=== PATIENT | female | born 1975 | race Caucasian/White ===

== ENCOUNTER → 2022-03-03 17:03 | Outpatient (CLI) | payer OTHER, SELFPAY ==
--- NOTE | ~2022-03-03 | MM_ITS ---
EXAMINATION: MM screening vipul BI w va HISTORY: Screening mammogram TECHNIQUE: Craniocaudal and mediolateral oblique 3-D tomosynthesis images were obtained and synthetic 2-D images were generated. CAD analysis was submitted and interpreted. COMPARISON: No prior mammogram is available for comparison at this institution. BREAST PARENCHYMAL COMPOSITION: There are scattered areas of fibroglandular density. FINDINGS: There is no evidence of suspicious mass, calcification, or architectural distortion to sugg est malignancy in either breast. There has been no suspicious interval change. IMPRESSION: 1. No mammographic evidence of malignancy. 2. Recommend routine screening mammography in one year. BI-RADS Category 1: Negative Reviewed, dictated and finalized at location A.
== END ==
PROVIDERS: PCP Internal Medicine; Visit Provider Internal Medicine
DX: Z12.31 Encounter for screening mammogram for malignant neoplasm of breast (principal)
CPT/HCPCS: 77063; 77067

== ENCOUNTER 2022-09-11 12:02 | Outpatient (CLI) | payer OTHER, SELFPAY ==
[2022-09-11 12:53] LABS: SARS-CoV-2 RNA PCR Negative (Negative)
[2022-09-11 15:13] LABS: RSV RNA, RT-PCR Positive (Negative)
[2022-09-11 15:21] LABS: Influenza A QL RT-PCR Negative (Negative); Influenza B QL RT-PCR Negative (Negative)
== END 2022-09-11 12:03 | disposition home or self-care (01) ==
PROVIDERS: PCP Internal Medicine; Visit Provider Internal Medicine
DX: R05.9 Cough, unspecified (principal); Z20.822 Contact with and (suspected) exposure to COVID-19
CPT/HCPCS: 87502; 87634; U0003; U0005

== ENCOUNTER → 2023-10-11 13:39 | Outpatient (CLI) | payer OTHER, SELFPAY ==
--- NOTE | ~2023-10-11 | MM_ITS ---
EXAMINATION: MM screening vipul BI w va HISTORY: Screening mammogram TECHNIQUE: Craniocaudal and mediolateral oblique 3-D tomosynthesis images were obtained and synthetic 2-D images were generated. CAD analysis was submitted and interpreted. COMPARISON: 03/03/2022 BREAST PARENCHYMAL COMPOSITION: There are scattered areas of fibroglandular density. FINDINGS: No suspicious mass, calcification, or architectural distortion are identified in either souleymane ast to suggest malignancy. There has been no suspicious interval change. IMPRESSION: 1. No mammographic evidence of malignancy. 2. Recommend routine screening mammography in one year. BI-RADS Category 1: Negative Reviewed, dictated and finalized at location A. GER BABY
== END ==
PROVIDERS: PCP Internal Medicine; Visit Provider Internal Medicine
DX: Z12.31 Encounter for screening mammogram for malignant neoplasm of breast (principal)
CPT/HCPCS: 77063; 77067

== ENCOUNTER → 2024-05-19 15:49 | Outpatient (REF) | payer OTHER, SELFPAY | LOC: ANHLAB 15:49 | PROVIDERS: PCP Internal Medicine; Visit Provider Plastic Surgery | DX: D23.61 Other benign neoplasm of skin of right upper limb, including shoulder (principal) | CPT/HCPCS: 88305 ==

== ENCOUNTER 2024-12-18 02:05 | Emergency (ER) | payer OTHER, SELFPAY ==
--- NOTE | ~2024-12-18 | XR_ITS ---
Clinical Indication: Shortness of breath PA and lateral views of the chest: Comparison: None Findings: Linear right basilar scarring or atelectasis present. The lungs are otherwise clear, withou t evidence of focal consolidation or pleural effusion. Cardiomediastinal silhouette is within normal limits. Bones and soft tissues are unremarkable. Impression: Linear right basilar scarring or atelectasis, otherwise clear lungs. Reviewed, dictated and finalized at location M. ER SAMPLE CASE Impression: Linear right basilar scarring or atelectasis, otherwise clear lungs.
--- OUTSIDE RECORDS SUMMARY | 2024-12-18 02:08 | XMS_ITS | Encounter Summary ---
Author Organization [facility] Address [address] [place] [address] Phone Care Team Providers Care Yarn Conditioner Name Role Phone Dioni Gibson MD Primary Care Provider Encounter Details Date Type Department Care Team (Latest Contact Info) Description 04/10/2019 Orders Only [facility] Scanning, Provider Social History Tobacco Use Types Packs/Day Years Used Date Smoking Tobacco: Never Smokeless Tobacco: Never Alcohol Use Standard Drinks/Week Comments No 0 (1 standard drink = 0.6 oz pur e alcohol) Comments Unknown Sex and Gender Information Value Date Recorded Sex Assigned at Not on file 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 Gender Identity Not on file Sexual Orientation Not on file documented as of this encounter Plan of Treatment Not on file documented as of this encounter Procedures Procedure Name Priority Date/Time Associated Diagnosis Comments PULMONARY - RESULT SCAN 04/10/2019 documented in this encounter Results * PULMONARY - RESULT SCAN (04/10/2019) Anatomical Region Laterality Modality Other us Provider Scanning Final Result documented in this encounter Visit Diagnoses Not on filedocumented in this encounter Care Teams Yarn Conditioner Relationship Specialty Start Date End Date Dioni Gibson MD PCP - General 03/21/17 documented as of this encounter
--- OUTSIDE RECORDS SUMMARY | 2024-12-18 02:08 | XMS_ITS | Encounter Summary ---
Author Organization [facility] Address [address] [place] [address] Phone Care Team Providers Care Business Applications Manager Name Role Phone Dioni Gibson MD Primary Care Provider Encounter Details Date Type Department Care Team (Latest Contact Info) Description 04/30/2019 Orders Only [facility] Scanning, Provider Social History Tobacco Use Types Packs/Day Years Used Date Smoking Tobacco: Never Smokeless Tobacco: Never Alcohol Use Standard Drinks/Week Comments No 0 (1 standard drink = 0.6 oz pur e alcohol) Comments Unknown Sex and Gender Information Value Date Recorded Sex Assigned at Not on file 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 Gender Identity Not on file Sexual Orientation Not on file documented as of this encounter Plan of Treatment Not on file documented as of this encounter Procedures Procedure Name Priority Date/Time Associated Diagnosis Comments SCAN - RADIOLOGY/IMAGING 04/30/2019 documented in this encounter Results * SCAN - RADIOLOGY/IMAGING (04/30/2019) Anatomical Region Laterality Modality Other us Provider Scanning Final Result documented in this encounter Visit Diagnoses Not on filedocumented in this encounter Care Teams Business Applications Manager Relationship Specialty Start Date End Date Dioni Gibson MD PCP - General 03/21/17 documented as of this encounter
--- OUTSIDE RECORDS SUMMARY | 2024-12-18 02:08 | XMS_ITS | Data Portability ---
Author Organization [place] [facility] [employer], Main Office Address [address] [place] [address] Assessment No assessment recorded. Plan of Treatment Reminders Order Date Submit Date Provider Last Modified By Organization Details Last Modified Time Details Appointments None recorded. Lab vitamin D, 25-hydroxy , total, serum 2022 023 [email or web address] [facility], [address] [place] [address], [address], 3 15:37:56 magnesium, serum or plasma 2022 023 [email or web address] [facility], [address] [place] [address], [address], 3 15:37:55 vitamin B12, serum 2022 023 [facility], [address] [place] [address], [address], 3 15:37:56 CBC w/ auto diff 2022 023 [email or web address] [facility], [address] [place] [address], [place], [address], 3 15:37:54 CMP, serum or plasma 2022 023 [email or web address] [facility], [address] [place] [address], [address], 3 15:37:55 lipid panel, serum 2022 023 [email or web address] [facility], [address] [place] [address], [address], 3 15:37:55 unlisted lab - T4, free 2022 023 [facility], [address] [place] [address], [place], [address], 3 15:37:55 TSH, ultra-sens itive, serum 2022 023 [email or web address] [facility], [address] [place] [address], [place], [address], 3 15:37:55 magnesium, serum or plasma 2023 024 [facility], [address] [place] [address], [place], [address], 4 12:56:27 CMP, serum or plasma 2023 024 [email or web address] [facility], [address] [place] [address], [place], [address], 4 12:56:26 CBC w/ auto diff 2023 024 [facility], [address] [place] [address], [place], [address], 4 12:56:26 lipid panel, serum 2023 024 [email or web address] [facility], [address] [place] [address], [place], [address], 4 12:56:26 TSH, ultra-sens itive, serum 2023 024 [facility], [address] [place] [address], [place], [address], 4 12:56:26 unlisted lab - T4, free 2023 024 [facility], [address] [place] [address], [place], [address], 4 12:56:27 vitamin B12 + folate, serum or blood 2023 024 [email or web address] [facility], [address] [facility], [place], [address], 4 12:56:27 iron + TIBC + ferritin, serum 2023 024 [facility], [address] [facility], [facility], [place], [address], 4 12:56:27 HbA1c (hemoglobi n A1c), blood 2023 024 [email or web address] [facility], [address] [facility], [facility], [place], [address], 12:56:27 HbA1c (hemoglobi n A1c), blood 2023 024 [email or web address] [facility], [address] [facility], [facility], [place], [address], 14:39:03 CMP, serum or plasma 2023 024 [facility], [address] [facility], [facility], [place], [address], 14:39:03 Referral None recorded. Procedures None recorded. Surgeries None recorded. Imaging None recorded. Medication Orders None recorded. Patient TargetsNo targets recorded. Patient Instructions Encounter Date Encounter Id Patient Instructions Last Modified By Organization Details Last Modified Time 02/07/2023 [id number] Follow-up hypertension-GERD -vitamin-D deficiency-morbid obesity clinically stable. Has had recent blood work performed which looked adequate otherwise. Will continue on current Rx recheck back in six months. [email or web address] Not available 02/07/2023 17:16:30 07/18/2023 [id number] Mass left chest wall -hypertension -GERD-rheumatoid arthritis -obesity class three. All clinically stable. Will need blood work consisting of CBC, CMP, lipid, thyroid, magnesium level, B12 and vitamin-D level. Does need a mammogram and will need a colonoscopy next year. Continue on current Rx will set up a surgical referral for removal of the lesion. Will obtain the mammogram in the interim. Portions of the record may have been created with voice recognition software. Occasional wrong-word or s ound-a-like substitutions may have occurred due to the inherent limitations of voice recognition software. Read the chart carefully and recognize, using context, where substitutions have occurred. Mammogram Next Appt: 6 Months Approximate Date: 01/14/2024 [email or web address] Not available 07/18/2023 10:42:35 01/23/2024 [id number] Follow-up hypertension, rheumatoid arthritis, GERD, obesity class three, this is leg syndrome. Plan to check blood work consisting of CBC, CMP, lipid, thyroid, hemoglobin A1c, iron levels, B12 and magnesium levels. Before change in medications for blood pressure increasing dose will see what the blood work shows 1st. May need to consider treatment of the of the anemia before addressing the blood pressure. Follow-up in four months pending the results of the testing. Next Appt: 4 Months Approximate Date: 05/22/2024 Portions of the record may have been created with voice recognition software. Occasional wrong-word or s ound-a-like substitutions may have occurred due to the inherent limitations of voice recognition software. Read the chart carefully and recognize, using context, where substitutions have occurred. Not available 01/23/2024 17:28:14 07/15/2024 [id number] risk assessment* [email or web address] Not availabl e 07/15/2024 17:21:11 INFLUENZA VACCIN E TD/TDAP Recommended today, patient declined Ordered Pa tient will get at local pharmacy/health department PNEUMONIA VACCINE Ordered Recommended today, patient declined Patient will get at local pharmacy/health department Recommen ded at age 64 SHINGLES Ordered Recommended today, patient declined Patient will get at local pharmacy/health department MAMMOGRAM: Last Mammogram No screening necessary patient is up to date DEXA SCAN CERVICAL SCREENING/PELVIC EXAMINATION Recommended today, but patient declined Ordered No screening necessary patient is up to date COLORECTAL SCREENING: Last Colonoscopy DEPRESSION SCREENING Negative BMI Overweight continue your current weight loss efforts try to lose 5% of your body weight try to lose 10% of your body weight NUTRITION PHYSICAL ACTIVITY Need more exercise/physical activity VISION ALCOHOL USE No alcohol use TOBACCO USE non smoker LUNG CANCER SCREENING Non Smoker-not indicated SEXUALLY ACTIVE HEPATITIS C SCREENING Not indicated GLUCOSE SCREENING LIPID SCREENING [email or web address] Not available 07/15/2024 17:02:02 Wellness evaluat ion risk assessment stable. Follow-up for essential hypertension, hyperlipidemia, type 2 diabetes, rheumatoid arthritis and obesity class three. Will check blood work specifically the hemoglobin A1c and CMP. Will hold off on lipid panel because the patient has been off her medication. Would strongly consider using a GLP one inhibitor the patient in order to help control her diabetes and fact that she is obesity class three would start on one the GLP one inhibitors help lose weight as well as control the diabetes. Will also restart back on atorvastatin to try to get it in cholesterol better control. Repeat the lipid panel in approximately six weeks Additional Orders - Directives - Recommendations 1. Needs a see a surgeon for internal hemorrhoids 2. Set up with Dermatology for recurrent urticarial rash 3. set up with director apparel for evaluation of urticaria 4. try to see the patient is a candidate for semaglutide or Mounjaro Next Appointment: 4 Months Approximate Date: 11/12/2024 Portions of the record may have been created with voice recognition software. Occasional wrong-word or s ound-a-like substitutions may have occurred due to the inherent limitations of voice recognition software. Read the chart carefully and recognize, using context, where substitutions have occurred. [email or web address] Not available 07/15/2024 17:20:47 Reason for Referral None Reported. Results Created Date Observation Date Name Description Value Unit Range Abnormal Flag Note LastModifiedBy Organization Detail LastModifiedTime 10/11/2010/11/2023 MAMMO , scree vani, digit al, bilat eral No observ ation record ed. [id number] [place] [address] Imaging [address], [place], [address], 10/11/2023 21:17:17 10/24/20 23 10/11/2023 MAMMO , scree vani, digit al, bilat eral No observ ation record ed. [id number] [place] [address] Imaging [address], [place], [address], 10/25/2023 06:49:21 01/30/20 24 01/30/2024 XR, chest , 2 view [facility] [address] [place] [address] Patien t Name: LAKISHA TINAJERO Access ion #: [id number] Sex: F : 1974 4 Dictat ed By: Henry Momin Attend ing Physic guzman: CHARLINE GIBSON CE Orderi ng Physic guzman: CHARLINE GIBSON CE Exam Date: 2023 17:01 PM Exam Name: XR CHEST 2V Admitt ing Diagno sis(es ): XR CHEST 2V CLINIC AL HISTOR Y: chest pain COMPAR KYLE: None TECHNI QUE: Fronta l and latera l view of the chest was obtain ed FINDIN GS: Lines and Tubes: None Lungs: No focal consol idatio n. Pleura : No effusi on. No pneumo thorax . Cardio medias tinal contou rs: Unrema rkable Bones: No acute osseou s abnorm ality. IMPRES MANDO: No acute cardio pulmon sneha diseas e. Electr onical ly Signed by: Henry Momin at 2023 17:17: 48 PM Page 1 [email or web address] [facility] (Imaging) [address] [place], [address], 01/31/2024 06:57:28 Result Notes None recorded. Problems Name Problem SNOMED Code Status Onset Date Resolution Date Notes Provider Name and Address Organization Details Recorded Time Asthma 751386621 Active 2018 Not Available [facility] 3 14:50:25 Gastroesophag eal reflux disease 052373862 Active 2016 Not Available [facility] 3 14:50:25 Headache 53608063 Active Not Available [facility] 3 14:50:25 Tear of medial meniscus of knee 289099853 Active 2018 Not Available [facility] 3 14:50:25 Family history of cancer of colon 771360397 Active 2017 Not Available [facility] 3 14:50:25 Vitamin D deficiency 85611034 Active 2021 Not Available [facility] 3 14:50:25 Dysphagia 91573437 Active Not Available [facility] 3 14:50:26 Cervical radiculopathy 90494117 Active Not Available [facility] 3 14:50:26 Respiratory syncytial virus infection 97017237 Active 2021 Not Available [facility] 3 14:50:26 Essential hypertension 81465558 Active Not Available [facility] 3 14:50:26 Rheumatoid arthritis 63797938 Active Not Available [facility] 3 14:50:26 Epigastric pain 05843695 Active Not Available [facility] 3 14:50:26 Serous otitis media 33286772 Active 2021 Not Available [facility] 3 14:50:26 COVID-19 748501258 Active 2021 Not Available [facility] 3 14:50:26 Morbid obesity 489045394 Active 2022 Dioni Gibson MD [address], [place], [address] , [facility] 3 17:14:02 Mass of chest wall 166050639 Active 2022 Dioni Gibson MD [address], [address], [place], [address] , [facility] 3 10:36:14 Obese class III 542406724 Active 2022 Dioni Gibson MD [address], [place], [address] , [facility] 3 10:37:49 Acute sinusitis 68944679 Active 2022 Dioni Gibson MD [address], [place], [address] , [facility] 3 12:11:59 Secondary restless legs syndrome 804377327 Active 2023 Dioni Gibson MD [address], [address], [place], [address] , [place] [facility] 4 17:23:01 Anemia 526893505 Active 2023 Dioni Gibson MD [address], [address] [facility], [place], [address] , [place] [facility] 4 17:26:48 Type 2 diabetes mellitus without complication 537193010 Active 2023 Dioni Gibson MD [address], [address], [place], [address] , [place] [facility] 4 17:04:14 Hypercholeste rolemia 80672016 Active 2023 Dioni Gibson MD [address], [place], [address] , [place] [facility] 4 17:04:51 Flank pain 940970664 Active 2023 Tameka Ware CMA null, [place] [facility] 4 17:29:04 Chest pain 81849602 Active 2023 Tameka Ware CMA null, [place] [facility] 4 17:29:25 Hemorrhoids 88695811 Active 2023 Dianne Worthington null, [place] [facility] 4 17:43:24 Cyst of skin 584054887 Active 2023 Celina Poole null, [place] [facility] 4 11:57:15 Diabetes mellitus 30360974 Active 2023 Tameka Ware CMA null, [place] [facility] 4 12:33:39 Urticaria 885727608 Active 2023 Celina Poole null, [place] [facility] 4 15:43:17 Internal hemorrhoids 20329605 Active 2023 Celina Poole null, [place] [facility] 15:45:27 Problem Notes None recorded. Procedures Surgical History None recorded. Imaging Results Imaging Date Name Status LastModified by Organiz ation Details LastModified Time 10/11/2023 MAMMO, screening, digital, bilateral completed [id number] [place] [address] [address], [place], [address], 10/11/2023 21:17:17 10/11/2023 MAMMO, screening, digital, bilateral completed [address] Imaging [address], [place], [address], 10/25/2023 06:49:21 01/30/2024 XR, chest, 2 view completed [address] (Imaging) [address] [place], [address], 01/31/2024 06:57:28 Procedure Notes None recorded. Medical Equipment None Reported. Allergies Allergen ID Allergen Name Allergen Category Reaction Reaction Severity Criticality Documentation Date Start Date Code Code System Note Provider Name and Address Organization Details Recorded Time 95566 Substance with sulfonami de structure and antibacte rial mechanism of action (substanc e) medicatio n rash Not available Not available 01/03/2023 49464 8003 SNOMED Not Available [facility] 3 14:53:57 92200 Product containin g penicilli n and antibioti c (product) medicatio n rash Not available Not available 01/03/2023 27169 05 SNOMED Not Available [facility] 3 14:53:57 35537 lisinopri l medicatio n cough Not available Not available 01/03/2023 97913 RxNorm Not Available [facility] 3 14:53:57 Medications Name Sig Start Date Stop Date Status Note LastModified by Organization Details LastModified Time losartan 50 mg tablet TAKE 1 TABLET BY MOUTH EVERY DAY 2024 active Not Available Not Available Not Avai lable metformin 500 mg tablet TAKE 1 TABLET BY MOUTH TWICE DAILY 07/15 completed Not Available Not Available Not Available doxycycline hyclate 100 mg capsule TAKE 1 CAPSULE BY MOUTH TWICE DAILY 01/22 completed Not Available Not Available Not Available atorvastati n 20 mg tablet TAKE 1 TABLET BY MOUTH EVERY DAY active Not Available Not Available No t Available clindamycin HCl 300 mg capsule Take 1 capsule every 6 hours by oral route. 07/18 completed Not Available Not Available Not Available azithromyci n 250 mg tablet TK 2 TS PO QD FOR 1 DAY THEN TK 1 T PO D 01/07 completed Not Available Not Available Not Available benzonatate 200 mg capsule TAKE 1 CAPSULE BY MOUTH THREE TIMES DAILY active Not Available Not Available No t Available sucralfate 1 gram tablet TK 1 T PO QID 01/07 completed Not Available Not Available Not Available lisinopril 20 mg tablet Take 1 tablet every day by oral route. 07/19 completed Not Available Not Available Not Available promethazin e 6.25 mg-codeine 10 mg/5 mL syrup Take 5 ML EVERY 6 HOURS by oral route PRN for cough active Not Available Not Available No t Available amlodipine 5 mg tablet Take 2 tablets every day by oral route. 07/15 completed Not Available Not Available Not Available leflunomide 20 mg tablet Take 1 tablet every day by oral route. active Not Available Not Available No t Available Mobic 15 mg tablet Take 1 tablet every day by oral route. 2012 active Not Available Not Available Not Avai lable hydrocortis one 2.5 % topical cream with perineal applicator APPLY THIN LAYER TOPICALLY TO THE AFFECTED AREA 2 TO 4 TIMES DAILY 07/15 completed Not Available Not Available Not Available Vitamin D3 10 mcg (400 unit) tablet Take 1 tablet every day by oral route. active Not Available Not Available No t Available OneTouch Ultra Test strips USE TO TEST BLOOD SUGAR ONCE DAILY active Not Available Not Available No t Available amlodipine 10 mg tablet TAKE 1 TABLET BY MOUTH DAILY 2024 active Not Available Not Available Not Avai lable pantoprazol e 40 mg tablet,traci yed release Take 1 tablet twice a day by oral route. active Not Available Not Available No t Available omeprazole 20 mg capsule,del ayed release TAKE 1 CAPSULE BY MOUTH EVERY MORNING active Not Available Not Available No t Available Levaquin 500 mg tablet Take 1 tablet every 24 hours by oral route. 07/19 completed Not Available Not Available Not Available lisinopril 10 mg-hydrochl orothiazide 12.5 mg tablet TAKE 1 TABLET BY MOUTH ONCE DAILY 07/19 completed Not Available Not Available Not Available methylpredn isolone 4 mg tablets in a dose pack Take by oral route as per package insert 01/21 completed Not Available Not Available Not Available albuterol sulfate HFA 90 mcg/actuati on aerosol inhaler INHALE 2 PUFFS 6 TIMES A DAY BY INHALATIO N ROUTE. active Not Available Not Available No t Available cefdinir 300 mg capsule Take 1 capsule every 12 hours by oral route. 01/21 completed Not Available Not Available Not Available neomycin-po lymyxin-hyd rocort 3.5 mg-10,000 unit/mL-1 % ear drops,susp SHAKE LIQUID AND INSTILL 4 DROPS TO AFFECTED EAR THREE TIMES DAILY 07/18 completed Not Available Not Available Not Available cyclobenzap rine 5 mg tablet Take 1 tablet 3 times a day by oral route. 2012 active Not Available Not Available Not Avai lable Prilosec OTC 20 mg tablet,traci yed release Take 1 tablet every day by oral route in the morning. 01/23 completed Not Available Not Available Not Available folic acid 07/22 completed Not Available Not Available Not Available omeprazole 20 mg tablet,traci yed release TAKE 1 TABLET BY MOUTH EVERY MORNING 07/18 completed Not Available Not Available Not Available OneTouch Ultra2 Meter USE DIRECTED active Not Available Not Available No t Available OneTouch Delica Plus Lancet 33 gauge USE TO TEST BLOOD SUGAR ONCE DAILY active Not Available Not Available No t Available OneTouch Delica Plus Lancing Device kit USE TO TEST BLOOD SUGAR ONCE DAILY active Not Available Not Available No t Available Paxlovid 300 mg (150 mg x 2)-100 mg tablets in a dose pack TAKE TWO OF HE 150 MG TABLETS AND ONE OF THE 100 MG TABLETS TWICE DAILY FOR FIVE DAYS 07/18 completed Not Available Not Available Not Available Ozempic 0.25 mg or 0.5 mg (2 mg/3 mL) subcutaneou s pen injector inject 0.5 mg once week same day each week active Not Available Not Available No t Available Zepbound 2.5 mg/0.5 mL subcutaneou s pen injector INJECT 2.5 MG BY SUBCUTANE OUS ROUTE ONCE WEEKLY FOR 4 WEEKS then will need to call office 11/14 completed Not Available Not Available Not Available Vitals Date Recorded Body mass index (BMI) Body height Oxygen saturation Oxygen saturation in Arterial blood by Pulse oximetry Heart rate Respiratory rate Body temperature Body weight Systolic blood pressure Diastolic blood pressure Provider Name and Address Organization Details Last Updated DateTime 3 40.4 kg/m2 167.64 cm 98 % 98 % 90 /min 12 /min 96.8 [degF] 571801. 09 g 156 mm[Hg] 96 mm[Hg] Not Available [facility] 3 14:49:01 Date Recorded Body height Body mass index (BMI) Body weight Body temperature Heart rate Oxygen saturation Oxygen saturation in Arterial blood by Pulse oximetry Systolic blood pressure Diastolic blood pressure Provider Name and Address Organization Details Last Updated DateTime 3 167.64 cm 40.4 kg/m2 777150. 09 g 97 [degF] 97 /min 96 % 96 % 140 mm[Hg] 88 mm[Hg] Jennifer Johnson MA [facility] 3 17:06:44 Date Recorded Body height Body mass index (BMI) Body weight Heart rate Body temperature Oxygen saturation Oxygen saturation in Arterial blood by Pulse oximetry Systolic blood pressure Diastolic blood pressure Provider Name and Address Organization Details Last Updated DateTime 3 165.1 cm 40.8 kg/m2 067000. 13 g 103 /min 97 [degF] 97 % 97 % 132 mm[Hg] 84 mm[Hg] Dianne Worthington [facility] 3 10:31:55 Date Recorded Body height Body mass index (BMI) Body weight Heart rate Body temperature Oxygen saturation Oxygen saturation in Arterial blood by Pulse oximetry Systolic blood pressure Diastolic blood pressure Provider Name and Address Organization Details Last Updated DateTime 4 165.1 cm 42.5 kg/m2 604768. 85 g 113 /min 97 [degF] 96 % 96 % 168 mm[Hg] 100 mm[Hg] Dianne Worthington [facility] 4 17:11:56 Date Recorded Body height Body weight Heart rate Body temperature Oxygen saturation Oxygen saturation in Arterial blood by Pulse oximetry Systolic blood pressure Diastolic blood pressure Provider Name and Address Organization Details Last Updated DateTime 4 165.1 cm 504977. 09 g 107 /min 97.7 [degF] 94 % 94 % 126 mm[Hg] 92 mm[Hg] SILVIA Doan [place] [facility] 4 16:56:13 Social History Question Answer Notes LastModified by Organizat ion Details LastModified Time Do You Have An Advance Directive? No [id number] Information not available 01/03/2023 In The 14 Days Before Symptom Onset, Have You Had Close Contact With A Laboratory-confirme d COVID-19 While That Case Was Ill? No [id number] Information not available 01/03/2023 In The 14 Days Before Symptom Onset, Have You Had Close Contact With A Person Who Is Under Investigation For COVID-19 While That Person Was Ill? No [id number] Information not available 01/03/2023 Do You Have A Medical Power Of Clinical Nursing Director? No [id number] Information not available 01/03/2023 Have You Recently Traveled Abroad? No [id number] Information not available 01/03/2023 Sex: Unknown Functional Status None recorded. Mental Status None recorded. Family History Nothing Reported Notes:Mother 50 yea rs old Father Living 83 years old 1 Brothers 1 Living 1 Sisters overdose Mother Hx Ca of Colon Father COPD Medical History Condition Response NERVE DISEASE N BLINDNESS N RHEUMATIC FEVER N KIDNEY STONES N BLADDER PROBLEMS N MRSA N OTHER # 1 N POLIO N LUNG DISEASE/DISORDER N HISTORY OF DRUG ABUSE N COPD N RADIATION / CHEMOTHERAPY N Other # 2 N BLOOD DISEASES N EAR OR HEARING PROBLEMS N MUMPS N SHINGLES N DEPRESSION (INCLUDING POST ) N BOWEL PROBLEMS N STROKE/TIA N ULCERS N BENIGN PROSTATIC HYPERPLASIA N MEASLES N HYPOTENSION N MYOCARDIAL INFARCTION N OBESITY N GERD/NAUSEA N ANEURYSM N URINARY/BLADDER/KIDNEY PROBLEMS N CORONARY ARTERY DISEASE (CAD) N ADDICTION CONCERNS N Impotence N ENDOMETRIOSIS N USE OF BLOOD THINNERS N SKIN PROBLEMS N GASTROINTESTINAL DISORDER N PERIPHERAL VASCULAR DISEASE N MUSCLE,JOINT OR BONE PROBLEMS N GASTROINTESTINAL BLEEDING N BLOOD CLOTS N ASTHMA N CATARACTS N ERECTILE DYSFUNCTION N VARICOSITIES N GI PROBLEMS N Low Testosterone N INFERTILITY N AIDS/HIV N CHEMOTHERAPY / RADIATION N LIVER DISEASE N MALE HYPOGONADISM N HYPERTENSION N Deficiency N TOURETTE'S N ANXIETY DISORDER N BLOOD TRANSFUSION N ANEMIA/BLOOD DISORDER N CHRONIC EAR INFECTIONS N BRONCHITIS N TUBERCULOSIS N GLAUCOMA N FOOT PROBLEM N DIVERTICULITIS N SLEEP APNEA N CHICKENPOX N INFECTIOUS DISEASE N PROSTATE N HEART ARRHYTHMIA N INSOMNIA N HIGH CHOLESTEROL / HYPERLIPIDEMIA N EYE PROBLEMS N HYPERTHYROIDISM N EDEMA N CHRONIC PAIN SYNDROME N HYPOTHYROIDISM N CAROTID BLOCKAGE N CONSTIPATION N BACK / NECK PROBLEMS Y HAVE YOU BEEN HOSPITALIZED OR SEEN IN [facility] IN THE PAST YEAR ? N ATHEROSCLEROSIS N BREAST PROBLEMS N DIALYSIS N ECZEMA N OSTEOPOROSIS N ARTHRITIS Y NO SIGNIFICANT PAST MEDICAL HISTORY N APPENDICITIS N DIABETES, TYPE N BAD TEETH N ENT N HEARTBURN / REFLUX Y AUTISM SPECTRUM DISORDER (ASD) N HEPATITIS / LIVER DISEASE N GOUT N SLEEP DISORDER N ALZHEIMER'S DISEASE N Brain Problems N DEMENTIA N HERPES N SEIZURES/EPILEPSY N HEADACHES/MIGRAINES N VASCULAR DISEASE N PACEMAKER N Blood Disorder N DIZZINESS N HEART DISEASE/HEART PROBLEMS N KIDNEY DISEASE N MULTIPLE SCLEROSIS N CANCER: SPECIFY N CARDIAC ARRHYTHMIA N ATRIAL FIBRILLATION N Gall Stones N PULMONARY EMBOLISM N AUTOIMMUNE DISEASE N Gynecological HistoryNo gynecological history recorded. Obstetrics History GPAL:G 0 P 0 0 0 0 Immunizations Vaccine Type Date Status Note Provider Nam e and Address Organization Details Recorded Time SARS-COV-2 (COVID-19) vaccine, UNSPECIFIED 1 completed Not Available [facility] 01/03/2023 14:53:52 SARS-COV-2 (COVID-19) vaccine, UNSPECIFIED 1 completed Not Available [facility] 01/03/2023 14:53:52 Past Encounters Encounter ID Performer Location Encounter Start Date Encounter Closed Date Diagnosis/Indication Diagnosis SNOMED-CT Code Diagnosis ICD10 Code Diagnosis Note [id number] [facility] [place] [facility] [address] [facility] [address] [facility] [place] [address] 01/07/2021 00:00:00 01/07/2021 11:52:13 [id number] [facility] Internal Med [facility] [address] [address] 07/13/2021 00:00:00 07/13/2021 17:34:45 [id number] [facility] Internal Med [facility] [address] [address] 01/23/2022 00:00:00 01/23/2022 16:51:36 [id number] [facility] Internal Med [facility] [address] [address] 08/09/2022 00:00:00 08/09/2022 17:12:40 [id number] Dioni Gibson MD [facility] Internal Med [facility] [address] [address] 02/07/2023 16:55:08 02/07/2023 17:24:12 Essential hypertension 53622544 I10 Gastroesop hageal reflux disease 138788459 K21.9 Vitamin D deficiency 347 43657 E55.9 Morbid obesity 623889871 E66.01 [id number] Dioni Gibson MD [facility] Internal Med [facility] [address] [address] 07/18/2023 10:29:52 07/18/2023 10:59:05 Mass of chest wall 735281951 R22.2 Essential hypertension 82101892 I10 Gastroesop hageal reflux disease 002865567 K21.9 Rheumatoid arthritis 698 68420 M06.9 Obese class III 16894878 5 E66.01 Vitamin D deficiency 347 48178 E55.9 [id number] Dioni Gibson MD [facility] Internal Med [facility] [address] [address] 01/23/2024 17:05:09 01/23/2024 17:32:26 Essential hypertension 71802430 I10 Rheumatoid arthritis 698 48349 M06.9 Obese class III 66878464 5 E66.01 Gastroesop hageal reflux disease 142744597 K21.9 Secondary restless legs syndrome 200283950 G25.81 Anemia 310190751 D64.9 [id number] Dioni Gibson MD [facility] Internal Med [place] mathis [address] [facility] [place] [address] 07/15/2024 16:51:30 07/15/2024 17:34:26 Adult health examination 584534146 Z00.00 Depression screening 171 389459 Z13.31 Essential hypertension 40638292 I10 Hypercholesterolemia 136 57288 E78.00 Rheumatoid arthritis 698 46135 M06.9 Type 2 simona betes mellitus without complication 906755935 E11.9 Obese class III 32496188 5 E66.01 Health Concerns Section Related Observation LastModified by Organization Detai ls LastModified Time None Recorded Concern Status LastModified by Organization Details LastModified Time None Recorded Advance Directives Directive N: Payers Encounter Date Sequence Insurance Name Policy Number Policy Blancas Covered Member ID Blancas Member ID Guarantor Name 02/07/2023 1 [facility] [id number] Angel E Nevills [id number] Lakisha A Nevills 07/18/2023 1 [facility] [id number] Angel E Nevills [id number] Lakisha A Nevills 01/23/2024 1 [facility] [id number] Angel E Nevills [id number] Lakisha A Nevills 07/15/2024 1 [facility] [id number] Angel E Nevills [id number] Lakisha A Nevills Notes Date Note Type Note Provider Name and Address Organization Details Recorded Time 3 text/html Patient Name: Lakisha CervantesDate Of Service: Sunday ( 02.07.2023 ): 1975 Age: 47 Vital Signs:Blood Pressure: Sitting Rt. Arm 140/88Pulse: Sitting 97 /min and RegularRespirations: 12Height 66 in or 1.7 mWeight 250 lb or 113.4 kgBMI 40.3Temperature: 97 F or 36.1 CPulse Oximetry: 96 % at rest on no oxygen Chief Complaint: Addressed in HPI Problems or conditions discussed in the HPI were the only ones reviewed during the encounter.Only social and family history addressed in the HPI were reviewed during this encounter. Attendant(s): None Constitutional and Systemic Symptoms: none Medication Reconciliation: from medication list. History of Present Illness #1. Essential Hypertension: Stage: Stage I Interval Neurological Complaints no headaches, dizziness, weakness, visual changes, ataxia, aphasia and apraxia. No shortness of breath, orthopnea or cardiovascular symptoms. No other symptoms related to end organ damage. Pressure has been under excellent control. Currently normal. No other end organ symptoms or findings. Therapy reviewed regarding management of hypertension and includes salt restriction and Norvasc. #2. Hx of esophageal reflux currently stable. Hx of Complications: none The severity, duration and intensity of symptoms have improved. Frequency: most meals Treatment consists medications taken on a regular basis. Current therapy includes Omeprazole. There has been no nausea. No change in he frequency or intensity of symptoms. Has had no melena. Has had no hematemesis. Discuss the possibility of trying to reduce the frequency of the use of any PPI inhibitors or H2 antagonist to see if symptoms can be controlled with last intensive therapy #3. Hx of Vitamin D deficiency. Has been on vitamin D Supplements. Has had has had a repeat value within acceptable range No other signs or symptoms of any osteoporotic or osteopenia fractures. #4. Hx of obesity. Currently morbidly obese. Has tried numerous dietary support and supplements with no benefit. Instructed on the health consequences of the obese status particularly cancer diabetes and heart disease. Discussed new modalities of weight loss including GLP-1 medications that are used to treat diabetes. Potential candidate for bariatric surgery: Yes but does no wish to pursue. Wishes to be evaluated by Dietary: Currently on weight watchers and has begun to lose some weight..Medication List Reviewed and Reconciled 02/07/2023Norvasc 5 MG (TABLET - ORAL) One DailyLeflunomide 20 MG (TABLET - ORAL) One DailyOmeprazole 20 MG CAPSULE, DELAYED RELEASE One DailyADRs List Reviewed 02/07/2023enicillin RashSulfa Drugs RashLisinopril CoughVaccination and Valwgkeoztfr3702-30 Covid PfizerSurgical HistoryRt. Ear TubesPreventative Testing Confirmed by Our Tuytpuj7903/03/2022 MAMMOGRAM / ALBUMIN 3.7 G/DL L04/30/2019 CT ZGFMAW3204/16/2019 UPPER UACZEAMNZ88/12/2019 COLONOSCOPY (5 YEARS) / LETTER OPHTHALMOLOGYSocial HistoryMarital Status: MLiving Status: With SpouseDoes not smoke cigarettes. 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 This represents approximately a 2.0% change in weight. Weight change attributable to lifestyle changes. Vital Signs:Blood Pressure: Sitting Rt. Arm 132/84Pulse: Sitting 103 /min and RegularHeight 65 in or 1.7 mWeight 245 lb or 111.1 kgBMI 40.8Temperature: 97 F or 36.1 CPulse Oximetry: 97 % at rest on no oxygen Chief Complaint: Addressed in HPI Problems or conditions discussed in the HPI were the only ones reviewed during the encounter.Only social and family history addressed in the HPI were reviewed during this encounter. Attendant(s): NoneConstitutional and Systemic Symptoms: none Medication Reconciliation: from medication list. History of Present Illness #1. Complaining of a lump or a mass in the subcutaneous area just above the left breast. Slightly tender but no other associated symptoms. Measures approximately 3 cm x 2 and 0.5 cm in diameter. No other associated lymphadenopathy is noted. There is no drainage from the breast or any other masses noted in the breast is overdue for mammogram and will need this. As mentioned is slightly tender.: #2. Essential Hypertension: Stage: Stage I Interval Neurological Complaints no headaches, dizziness, weakness, visual changes, ataxia, aphasia and apraxia. No shortness of breath, orthopnea or cardiovascular symptoms. No other symptoms related to end organ damage. Pressure has been under excellent control. Currently normal. No other end organ symptoms or findings. Therapy reviewed regarding management of hypertension and includes salt restriction and Norvasc. #3. Hx of esophageal reflux currently stable. Hx of Complications: none The severity, duration and intensity of symptoms have improved. Frequency: most meals Treatment consists medications taken on intermittent basis. Current therapy includes Omeprazole. There has been no nausea, eructation, vomiting, hematemesis, dysphagia, velopharyngeal insufficiency and odynophagia. No change in he frequency or intensity of symptoms. Has had no melena. Has had no hematemesis. Discuss the possibility of trying to reduce the frequency of the use of any PPI inhibitors or H2 antagonist to see if symptoms can be controlled with last intensive therapy #4. Hx of rheumatoid arthritis. Currently stable. No additional joint swelling or deformities noted. Synovial thickening as noted below. Physical activity status unchanged. Followed by Counselor Education Professor: Yes. Tolerating medications well. Medications currently consistent of NSAIDS. #5. Hx of obesity. Currently Class 3 Obesity [place] > 40. Has tried numerous dietary support and supplements with no benefit. Instructed on the health consequences of the obese status particularly cancer - diabetes and heart disease. Discussed new modalities of weight loss including GLP-1 medications that are used to treat diabetes. Potential candidate for bariatric surgery: Yes but does no wish to pursue. Wishes to be evaluated by Dietary: No and was offered to be evaluated and instructed by lead warehouse associate on weight loss diet.Medication List Reviewed and Reconciled 07/18/2023Norvasc 5 MG (TABLET - ORAL) One DailyLeflunomide 20 MG (TABLET - ORAL) One DailyOmeprazole 20 MG CAPSULE, DELAYED RELEASE One DailyADRs List Reviewed 07/18/2023enicillin RashSulfa Drugs RashLisinopril CoughVaccination and Ljfqobjmbbbm5224-92 CovQuuSurgical HistoryRt. Ear TubesPreventative Testing Confirmed by Our Ggsisck1203/03/2022 MAMMOGRAM / ALBUMIN 3.7 G/DL L04/30/[address] CT OGABOH6504/16/2019 UPPER SHHAIIZME07/12/2019 COLONOSCOPY (5 YEARS) / LETTER OPHTHALMOLOGYSocial HistoryMarital Status: MLiving Status: With SpouseDoes not smoke cigarettes. Exercise: InfrequentlySexual Hx: Sexually ActiveOccupation: Insurance AgentMiscellaneous:Uses no illicit drugsUses seat belts regularlyFamily HistoryMother 50 years oldFather Living 84 years old1 Brothers 1 Living1 Sisters overdoseMother Hx: Ca of ColonFather COPD Dioni Gibson MD [address] [facility], [facility] [address], [place], [address], [place] [facility] [employer] 07/18/2023 10:42:59 4 text/html Patient Name: Lakisha CervantesLili Of Service: Sunday ( 01.23.2024 ): 1975 Age: 48 There has been approximately a 10.5 lb weight gain since 07/18/2023. This represents approximately a 4.3% change in weight. Weight change attributable to lifestyle changes. Vital Signs:Blood Pressure: Sitting Rt. Arm 168/100Pulse: Sitting 113 /min and RegularRespiratory Rate: 12Height 65 in or 1.7 mWeight 255.5 lb or 115.9 kgBMI 42.5 Chief Complaint: Addressed in HPI Problems or conditions discussed in the HPI were the only ones reviewed during the encounter.Only social and family history addressed in the HPI were reviewed during this encounter. Attendant(s): NoneConstitutional and Systemic Symptoms:none Medication Reconciliation: from medication list. History of Present Illness #1. Essential Hypertension: Stage: Stage I Interval Neurological Complaints no headaches, dizziness, weakness and visual changes. No shortness of breath, orthopnea or cardiovascular symptoms. No other symptoms related to end organ damage. Pressure has been under poor control. Currently elevated and instructed to recheck in office in two weeks. No other end organ symptoms or findings. Therapy reviewed regarding management of hypertension and includes salt restriction and Norvasc. #2. Hx of rheumatoid arthritis. Currently stable. No additional joint swelling or deformities noted. Synovial thickening as noted below. Physical activity status unchanged. Followed by Counselor Education Professor: Yes. Tolerating medications well. Medications currently consistent of Leflunomide. #3. Hx of esophageal reflux currently stable. Hx of Complications: none The severity, duration and intensity of symptoms have improved. Frequency: most meals Treatment consists medications taken on a regular basis. Current therapy includes Omeprazole. There has been no nausea. No change in he frequency or intensity of symptoms. Has had no melena. Has had no . Discussed use of H2 antagonists and the possibility of trying to reduce the frequency of the use of any PPI inhibitors and try H2 antagonists to see if symptoms can be controlled with lease intensive therapy since a number of complications are associated with chronic prolonged use of PPI inhibitors. #4. Restless Leg Syndrome: Hx of the restless leg syndrome. Currently taking no medications. Symptoms are worse. #5. Hx of obesity. Currently Class 3 Obesity [place] > 40. Has tried numerous dietary support and supplements with no benefit. Instructed on the health consequences of the obese status particularly cancer - diabetes and heart disease. Discussed new modalities of weight loss including GLP-1 medications that are used to treat diabetes. Potential candidate for bariatric surgery: Yes but does no wish to pursue. Wishes to be evaluated by Dietary: No and was offered to be evaluated and instructed by lead warehouse associate on weight loss diet. Active Medication ListNorvasc 5 MG (TABLET - ORAL) One DailyLeflunomide 20 MG (TABLET - ORAL) One DailyOmeprazole 20 MG CAPSULE, DELAYED RELEASE One DailyVitamin D Daily Adverse Drug Reactions ReviewedPenicillin RashSulfa Drugs RashLisinopril Cough Vaccination and Ipumsuykeitw4442-37 Covid Learnerator Surgical Ubeltjn4857-30 Rt. Ear Tubes Preventative Bxqkvsz9210/11/2023 MAMMOGRAM / ALBUMIN 3.8 G/DL L04/30/2019 CT [id number]/16/2019 UPPER EKJJTAXQD93/12/2019 COLONOSCOPY (5 YEARS) / OPHTHALMOLOGY Social HistoryMarital Status: MLiving Status: With SpouseDoes not smoke cigarettes. 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 This represents approximately a 2.2% change in weight. Weight change attributable to lifestyle changes. Vital Signs:Blood Pressure: Sitting Rt. Arm 126/92Pulse: Sitting 107 /min and RegularRespiratory Rate: 14Height 65 in or 1.7 mWeight 250 lb or 113.4 kgBMI 41.6 Chief Complaint: Addressed in HPI Problems or conditions discussed in the HPI were the only ones reviewed during the encounter.Only social and family history addressed in the HPI were reviewed during this encounter. Attendant(s): NoneConstitutional and Systemic Symptoms:none Medication Reconciliation: from medication list. History of Present Illness In for a well patient check up. Last well patient evaluation was approximately one year. No interval complaints of any major medical problems. No hx of any chest pain, shortness of breath, nausea, vomiting, diarrhea or constitutional symptoms. Also being followed for other chronically monitored problems.Has Had A Mammogram already doneHas Had A Pap Smear dueImmunizations Up To Date or refuses to takeNo Significant Change In Family HxColonoscopy or Cologuard: dueFall Risk normalDepression Score: 0PHQ-9 Score [IndicatedHearing normalVision normalReviewed Smoking and Drug HistoryReviewed Immunization HistoryInstructed on importance of weight on diabetes, heart and other diseases aggravated by obesity. #1. Essential Hypertension: Stage: Stage I Interval Neurological Complaints no headaches, dizziness, weakness, visual changes, ataxia, aphasia and apraxia. No shortness of breath, orthopnea or cardiovascular symptoms. No other symptoms related to end organ damage. Pressure has been under excellent control. Currently normal. No other end organ symptoms or findings. Therapy reviewed regarding management of hypertension and includes salt restriction and Losartan Potassium and Norvasc. #2. Type II Hypercholesterolaemia: Currently stopped medication independently. No interval complaints of any muscle pain or arthralgia. No significant liver changes with medications. Last lipid panel: suboptimal by ATP III guidelines. Therapy reviewed regarding treatment of cholesterol management and include diet. #3. Type I Diabetes: Has had no polyuria polyphagia or polydipsia. Has had no hypoglycemic like responses. No new history of any numbness, tingling, weakness or visual problems. No nausea, anorexia or other constitutional symptoms. There has been no foot problems or non healing lesions. [facility] Calculated MB mg%. CGM: No. Average blood sugars > 150 mg%. Checking sugars : infrequently Medication Types Include: Stopped her metformin independently because of GI symptomatology. Secondary complications include none. Macro-vascular complications include none. Therapy reviewed regarding diabetic management and include diet only Compliance: non-compliant Renal Protection: starting on a calcium john Lipid management: refuses to use Urinary microalbumin: A1 . Ophthalmological: has seen eye doctor within the last year. Control: Inadequate control > 8 #4. Hx of rheumatoid arthritis. Currently stable. No additional joint swelling or deformities noted. Synovial thickening as noted below. Physical activity status unchanged. Followed by Counselor Education Professor: Yes. Tolerating medications well. Medications currently consistent of Leflunomide. #5. Hx of obesity. Currently Class 3 Obesity MN > 40. Has tried numerous dietary support and supplements with no benefit. Instructed on the health consequences of the obese status particularly cancer - diabetes and heart disease. Discussed other modalities of weight loss GLP-1 medications that are used to treat diabetes . Potential candidate for bariatric surgery: Yes but does no wish to pursue. Wishes to be evaluated by Dietary: No and was offered to be evaluated and instructed by lead warehouse associate on weight loss diet. Active Medication ListLosartan Potassium 50 MG TABLET Once DailyNorvasc 10 MG TABLET One DailyLeflunomide 20 MG (TABLET - ORAL) One DailyOmeprazole 20 MG CAPSULE, DELAYED RELEASE One DailyVitamin D Daily Adverse Drug Reactions ReviewedPenicillin RashSulfa Drugs RashLisinopril Cough Vaccination and Yufjtkioxgzv7823-75 Covid Learnerator Surgical Kosdpic4928-30 Rt. Ear Tubes Preventative Testing( ) 01/26/2024 Albumin 3.7 G/DL L( ) 01/26/2024 HAIC 8.1 % H( ) 10/11/2023 Mammogram 10/11/2024( ) 04/30/2019 CT Thorax( ) 04/16/2019 Upper Endoscopy(X) 04/16/2019 Colonoscopy (5 Years) 04/16/2024( ) 02/21/2013 Ophthalmology Social HistoryMarital Status: MLiving Status: With SpouseDoes not smoke cigarettes. Exercise: InfrequentlySexual Hx: Sexually ActiveOccupation: Insurance AgentMiscellaneous:Uses no illicit drugsUses seat belts regularlyFamily HistoryMother 50 years oldFather Living 84 years old1 Brothers 1 Living1 Sisters overdoseMother Hx: Ca of ColonFather COPD Dioni Gibson MD [address] [facility], [facility] [address], [place], [address], [place] [facility] [employer] 07/15/2024 17:21:15 OBGyn Episode No OBEpisode recorded.
--- OUTSIDE RECORDS SUMMARY | 2024-12-18 02:08 | XMS_ITS | Clinical Summary ---
Author Organization [facility] Address [address] [place] [address] Care Team Providers Care Director Of Science Name Role Phone Dioni Gibson MD Primary Care Provider Allergies Active Allergy Reactions Criticality Noted Date Comments Lisinopril Cough Low 04/19/2022 Penicillins Unknown 07/05/2018 Sulfa (Sulfonamide Antibiotics) Rash Medium 04/05 Medications amLODIPine (NORVASC) 5 mg tablet TK 1 T PO QD 1 8 Active PROCTOSOL HC 2.5 % rectal cream APPLY SPARINGLY TO AFFECTED AREA 2 TO 4 TIMES A DAY [address] (PROTONIX) 40 mg EC tablet TK 1 T PO BID 0 9 Active SUPREP BOWEL PREP KIT 17.5-3.13-1.6 gram recon soln U UTD 0 9 Active sucralfate (CARAFATE) 1 gram tablet TK 1 T PO QID 0 9 Active omeprazole (PriLOSEC) 2 mg/ml suspension FIRST-Omeprazol e 2 mg/mL oral suspension Active cholecalciferol 400 unit capsule Take 1 tablet every day by oral route. Active losartan (COZAAR) 50 mg tablet Take 1 tablet (50 mg total) by mouth daily 4 Active metFORMIN (GLUCOPHAGE) 500 mg tablet Take 1 tablet (500 mg total) by mouth 2 (two) times a day 4 Active leflunomide (ARAVA) 20 mg tabletIndicatio ns:Seronegative rheumatoid arthritis (CMS/HCC) (HCC),High risk medication use Take 1 tablet (20 mg total) by mouth daily 90 tablet 1 4 Active Active Problems Problem Noted Date Diagnosed Date Arthralgia of multiple joints 03/13/2017 Vitamin D deficiency disease 12/20/2015 Seronegative rheumatoid arthritis (CMS/HCC) 12/0 04/2013 Sarcoidosis Immunizations Name Administration Dates Next Due Tdap 11/26/2015 Medical History Medical History Date Comments Hypertension Migraines Pneumonia Obesity Rheumatoid arthritis (HCC) Family History Medical History Relation Name Comments No Known Problems Mother Relation Name Status Comments Mother Social History Tobacco Use Types Packs/Day Years Used Date Smoking Tobacco: Never Smokeless Tobacco: Never Tobacco Cessation:Counseling Given: Yes Alcohol Use Standard Drinks/Week Comments No 0 (1 standard drink = 0.6 oz pur e alcohol) Personal Safety Answer Date Recorded Getting School Help Needed Not on file 12/02 Comments Unknown Sex and Gender Information Value Date Recorded Sex Assigned at Not on file Legal Sex Female 7:00 AM REMITTANCE CLERK Gender Identity Not on file Sexual Orientation Not on file Obstetrics History Last Filed Vital Signs Vital Sign Reading Time Taken Comments Blood Pressure 157/102 06/04/2024 9:49 AM CDT Pulse 108 06/04/2024 9:49 AM CDT Temperature 36.8 C (98.3 F) 06/04/2024 9:49 AM CDT Respiratory Rate 21 11/26/2019 3:00 PM REMITTANCE CLERK Oxygen Saturation 94% 11/26/2019 4:27 PM REMITTANCE CLERK Inhaled Oxygen Concentration - - Weight 115.4 kg (254 lb 8 oz) 06/04/2024 9:49 AM CDT Height 165.1 cm (5' 5 ) 06/04/2024 9:49 AM CDT Body Mass Index 42.35 06/04/2024 9:49 AM CDT Plan of Treatment Health Maintenance Due Date Last Done Comments Albumin Creatinine Ratio, Urine 1974 Breast Cancer Screening-Mammogram 1974 Cervical Cancer Screening 1974 Colon Cancer Screening-Colonoscopy 1974 Depression Screening 1974 Hemoglobin A1C 1974 Hepatitis C Screening 1974 Dilated Eye Exam 1974 Foot Exam 1974 Lipid Panel 1974 Pneumococcal vaccine <65 (1 of 2 - PCV) 1980 Hepatitis B Screening 1992 Regular Well Visit/Exam 18-64 1992 Zoster Vaccine (1 of 2) 2024 Influenza Vaccine (#1) 2024 eGFR 06/02/2025 06/02/2024, 12/06, 08/25/2023, Additional history exists DTaP/Tdap/Td Vaccine (2 - Td or Tdap) 11/26/2025 11/26/2015 Procedures Procedure Name Priority Date/Time Associated Diagnosis Comments COMPREHENSIVE METABOLIC PANEL Routine 06/02/2024 3:32 PM CDT Seronegative rheumatoid arthritis (CMS/HCC) (HCC) High risk medication use from Last 3 Months or Most Recently Relevant to Health Maintenance Results * (ABNORMAL) Comprehensive metabolic panel (06/02/2024 3:32 PM CDT) Glucose 236(H) 70 - 99 mg/dL [facility] - 01 BUN 13 6 - 24 mg/dL [facility] - 01 Creatinine, Serum 0.63 0.57 - 1.00 mg/dL [facility] - 01 eGFR 108 >59 mL/min/1.7 3 [facility] - 01 BUN/creat ratio 21 9 - 23 [facility] - 01 Sodium 139 134 - 144 mmol/L [facility] - 01 Potassium, sr 4.4 3.5 - 5.2 mmol/L [facility] - 01 Chloride 100 96 - 106 mmol/L [facility] - 01 CO2 23 20 - 29 mmol/L [facility] - 01 Calcium 9.1 8.7 - 10.2 mg/dL [facility] - 01 Protein, sr 6.6 6.0 - 8.5 g/dL [facility] - 01 Albumin 3.9 3.9 - 4.9 g/dL [facility] - 01 Globulin, Total 2.7 1.5 - 4.5 g/dL [facility] - 01 Bilirubin, Total <0.2 0.0 - 1.2 mg/dL [facility] - 01 Alk phos 90 44 - 121 IU/L [facility] - 01 AST 19 0 - 40 IU/L [facility] - 01 ALT 34(H) 0 - 32 IU/L [facility] - 01 Blood 06/02/2024 3:32 PM CDT 06/02/2024 Narrative [facility] - 06/03/2024 10:11 AM CDT Performed at: [id number] [id number] Agronomist: Mic Kaye PhD, Phone: [phone] us Carroll Becker MD LAB BLOOD ORDERABLES Final Re sult [facility] - 01 from Last 3 Months or Most Recently Relevant to Health Maintenance Insurance [facility] HMO/PPO Address[place] [address] [facility] H[facility]/PPO Address: [facility] [address] [place] [address] Care Teams Director Of Science Relationship Specialty Start Date End Date Dioni Gibson MD PCP - General 03/21/17
--- OUTSIDE RECORDS SUMMARY | 2024-12-18 02:08 | XMS_ITS | Encounter Summary ---
Author Organization [facility] Address [address] [place] [address] Phone Care Team Providers Care Any Commodity Buyer Name Role Phone Dioni Gibson MD Primary Care Provider Encounter Details Date Type Department Care Team (Latest Contact Info) Description 04/12/2019 Orders Only [facility] Scanning, Provider Social History Tobacco Use Types Packs/Day Years Used Date Smoking Tobacco: Never Smokeless Tobacco: Never Alcohol Use Standard Drinks/Week Comments No 0 (1 standard drink = 0.6 oz pur e alcohol) Comments Unknown Sex and Gender Information Value Date Recorded Sex Assigned at Not on file 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 Gender Identity Not on file Sexual Orientation Not on file documented as of this encounter Plan of Treatment Not on file documented as of this encounter Procedures Procedure Name Priority Date/Time Associated Diagnosis Comments CARDIOLOGY DOCUMENT SCAN 04/12/2019 documented in this encounter Results * SCAN - CARDIOLOGY (04/12/2019) Anatomical Region Laterality Modality Other us Provider Scanning CV CARDIAC SERVICES PROCEDURES Final Result documented in this encounter Visit Diagnoses Not on filedocumented in this encounter Care Teams Any Commodity Buyer Relationship Specialty Start Date End Date Dioni Gibson MD PCP - General 03/21/17 documented as of this encounter
--- OUTSIDE RECORDS SUMMARY | 2024-12-18 02:08 | XMS_ITS | Encounter Summary ---
Author Organization [facility] Address [address] [place] [address] Phone Care Team Providers Care Line Maintainer Section Name Role Phone Dioni Gibson MD Primary Care Provider Encounter Details Date Type Department Care Team (Latest Contact Info) Description 10/04/2019 Orders Only [facility] Scanning, Provider Social History Tobacco Use Types Packs/Day Years Used Date Smoking Tobacco: Never Smokeless Tobacco: Never Alcohol Use Standard Drinks/Week Comments No 0 (1 standard drink = 0.6 oz pur e alcohol) Comments Unknown Sex and Gender Information Value Date Recorded Sex Assigned at Not on file 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
--- OUTSIDE RECORDS SUMMARY | 2024-12-18 02:08 | XMS_ITS | Data Portability ---
Author Organization [facility] [place] Address [address] [place] [address] [place] [address] Care Team Providers Care Leather Craftsman Name Role Phone KAREN KIM Primary Care Provider Assessment Encounter Date Assessment Date Assessment LastModified by Organization Details LastModified Time 01/09/2023 01/09/2023 The patient and I discussed the various causes of abnormal uterine bleeding, including polyps, fibroids, hyperplasia, atypia, anovulation, etc. We reviewed the typical evaluation with labs, pelvic US and possible endometrial biopsy. Briefly discussed the options available for treatment (depending on the results of evaluation) such as hormonal treatment (OCPs, progestins), Mirena, endometrial ablation, and surgery. We spent more than 30 minutes face to face. [email or web address] Not available 01/09/2023 12:37:54 01/25/2023 01/25/2023 Annual gynecological exam performed. Patient will come back in a year unless there are new symptoms. Not available 01/25/2023 16:33:46 Plan of Treatment Reminders Order Date Submit Date Provider Last Modified By Organization Details Last Modified Time Details Appointments None recorded. Lab CBC w/ auto diff 2022 023 [facility], [address], [place], [address], 05:01:00 TSH + free T4, serum 2022 023 [facility], [address], [place], [address], 3 05:01:00 prolactin, serum 2022 023 [facility], [address], [place], [address], 3 05:01:00 HbA1c (hemoglobin A1c), blood 2022 023 [facility], [address], [place], [address], 3 05:01:00 hormone panel, serum or plasma 2022 023 [facility], [address], [place], [address], 3 05:01:00 CMP, serum or plasma 2022 023 [facility], [address], [place], [address], 3 05:01:00 HCG, intact + beta subunit, quant, serum or plasma 2022 023 [facility], [address], [place], [address], 3 05:01:00 Referral None recorded. Procedures None recorded. Surgeries None recorded. Imaging US, pelvis, complete 2022 023 [facility] [facility], [address], [address], [place], [address], 3 05:01:41 US, pelvis 2022 023 [email or web address] [facility], [address], [address], [place], [address], 3 18:18:13 US, transvagina l 2022 023 [place] [address], [address], [place], [address], 18:33:14 MAMMO, screening, bilateral 2022 023 [place] [facility], [address], [place], [address], 05:00:54 Medication Orders None recorded. Patient TargetsNo targets recorded. Patient InstructionsNo instructions recorded. Reason for Referral None Reported. Results Created Date Observation Date Name Description Value Unit Range Abnormal Flag Note LastModifiedBy Organization Detail LastModifiedTime 01/13/2001/15/2023 US, pelvi s No observ ation record ed. [email or web address] [place] [address], [place], [address], 01/15/2023 18:33:23 01/13/20 23 01/15/2023 US, trans vagin al No observ ation record ed. [email or web address] [place] [address], [place], [address], 01/15/2023 18:33:14 01/13/2001/12/2023 US, pelvi s No observ ation record ed. [email or web address] [address] [address], [place], [address], 01/29/2023 11:35:51 Result Notes None recorded. Procedures Surgical History Date Name Laterality Status Provider Name and Address Organization Details Recorded Time 03/09/20 Date of Last Mammogram completed [facility] 01/09/2023 12:22:33 11/14/19 completed [facility] 01/09/2023 12:22:33 11/14/19 Date of Last Colonoscopy completed [facility] 01/09/2023 12:22:33 01/01/20 01 Date of Last Pap Smear completed [facility] 01/09/2023 12:22:33 Other completed Swathi Pedersen [facility] [address], [place], [address], [facility] 01/09/2023 12:28:36 Colonoscopy [address] Pema Montes [facility] 01/09/2023 12:22:43 endoscopy completed Swathi Pedersen [facility] [address], [place], [address], [facility] 01/09/2023 12:29:01 Imaging Results Imaging Date Name Status LastModified by Organization Details LastModified Time 01/15/2023 US, pelvis completed [email or web address] [place] [address], [place], [address], 01/15/2023 18:33:23 01/15/2023 US, transvaginal completed [email or web address] [address], [place], [address], 01/15/2023 18:33:14 01/12/2023 US, pelvis completed [email or web address] [address], [place], [address], 01/29/2023 11:35:51 Procedure Notes None recorded. Medical Equipment None Reported. Allergies Allergen ID Allergen Name Allergen Category Reaction Reaction Severity Criticality Documentation Date Start Date Code Code System Note Provider Name and Address Organization Details Recorded Time Product containin g penicilli n and antibioti c (product) medicatio n rash Not available Not available 01/09/2023 [id number] [facility] 12:23:03 Medications Name Sig Start Date Stop Date Status Note LastModified by Organization Details LastModified Time clindamycin HCl 300 mg capsule TAKE 1 CAPSULE BY MOUTH EVERY 6 HOURS 01/25 completed Not Available Not Available Not Available amlodipine 5 mg tablet TAKE 1 TABLET BY MOUTH EVERY DAY active Not Available Not Available No t Available leflunomide 20 mg tablet active Not Available Not Available Not Available albuterol sulfate HFA 90 mcg/actuati on aerosol inhaler INHALE 2 PUFFS 6 TIMES A DAY BY INHALATIO N ROUTE. 01/25 completed Not Available Not Available Not Available neomycin-po lymyxin-hyd rocort 3.5 mg-10,000 unit/mL-1 % ear drops,susp SHAKE LIQUID AND INSTILL 4 DROPS TO AFFECTED EAR THREE TIMES DAILY 01/25 completed Not Available Not Available Not Available amlodipine 01/25 completed Not Available Not Available Not Available leflunomide 01/25 completed Not Available Not Available Not Available FIRST-Omepr azole 2 mg/mL oral suspension active Not Available Not Available N ot Available Paxlovid 300 mg (150 mg x 2)-100 mg tablets in a dose pack TAKE TWO OF HE 150 MG TABLETS AND ONE OF THE 100 MG TABLETS TWICE DAILY FOR FIVE DAYS 01/25 completed Not Available Not Available Not Available Vitals Date Recorded Body height Body mass index (BMI) Body weight Provider Name and Address Organization Details Last Updated DateTime 01/09/2023 165.1 cm 42.4 kg/m2 281789.[address] [facility] 01/09/2023 12:22:16 Date Recorded Systolic blood pressure Diastolic blood pressure Provider Name and Address Organization Details Last Updated DateTime 01/09/2023 122 mm[Hg] 80 mm[Hg] Swathi Pedersen [facility]- [address], [place], [address], [facility] 01/09/2023 16:31:49 Date Recorded Body height Body mass index (BMI) Body weight Provider Name and Address Organization Details Last Updated DateTime 01/25/2023 165.1 cm 42.1 kg/m2 695524.[address] [facility] 01/25/2023 16:34:09 Date Recorded Systolic blood pressure Diastolic blood pressure Provider Name and Address Organization Details Last Updated DateTime 01/25/2023 144 mm[Hg] 88 mm[Hg] Swathi Pedersen, [facility]- [address], [place], [address], [facility] 01/25/2023 17:18:23 Social History Question Answer Notes LastModified by Organizat ion Details LastModified Time Tobacco Smoking Status Never Smoker Chantelle Johns hoang, [facility] 01/25/2023 16:35:15 What Is Your Level Of Alcohol Consumption? Occasional Information not available 01/09/2023 Are You Blind Or Do You Have Difficulty Seeing? No Information not available 01/09/2023 What Is Your Level Of Caffeine Consumption? Occasional Information not available 01/09/2023 How Much Tobacco Do You Chew? None Information not available 01/09/2023 In The 14 Days Before Symptom Onset, Have You Had Close Contact With A Laboratory-confir med COVID-19 While That Case Was Ill? No Information not available 01/09/2023 In The 14 Days Before Symptom Onset, Have You Had Close Contact With A Person Who Is Under Investigation For COVID-19 While That Person Was Ill? No Information not available 01/09/2023 Have You Been To An Area Known To Be High Risk For COVID-19? No Information not available 01/09/2023 Are You Deaf Or Do You Have Serious Difficulty Hearing? No Information not available 01/09/2023 What Type Of Diet Are You Following? REGULAR Information not available 01/09/2023 What Is The Highest Grade Or Level Of School You Have Completed Or The Highest Degree You Have Received? 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 Yes Information not available 01/09/2023 Do You Use Protection During Sex? No Information not available 01/09/2023 Do You Use Your Seat Belt Or Car Seat Routinely? Yes Information not available 01/09/2023 Do You Have Smoke And Carbon Monoxide Detectors In Your Home? Yes Information not available 01/09/2023 How Much Tobacco Do You Smoke? No Information not available 01/09/2023 Do You Feel Stressed (tense, Restless, Nervous, Or Anxious, Or Unable To Sleep At Night)? [id number] Information not available 01/09/2023 Do You Use Any Illicit Or Recreational Drugs? No Information not available 01/09/2023 Do You Use Sunscreen Routinely? Yes Information not available 01/09/2023 Have You Used IV Drugs? No Information not available 01/09/2023 Sex: Unknown Functional Status Question Answer Note LastModified by Organizat ion Details LastModified Time Do you have difficulty walking or climbing stairs? No Information not available 01/25/2023 Are you able to walk? YESWOREST Information not available 01/09/2023 Are you able to care for yourself? Yes Information not available 01/25/2023 Do you have difficulty dressing or bathing? No Information not available 01/25/2023 What is your exercise level? Occasional Information not available 01/09/2023 Mental Status None recorded. Family History Relationship Description Onset Age of this Age Resolved Age Notes LastModified by Organization Details LastModified Time Paternal Grandfather Heart disease Not available 2022 12:22:25 Maternal Grandmother Malignant tumor of lung Not available 2022 12:22:25 Mother Malignant tumor of colon Not available 2022 12:22:25 Mother Diabetes mellitus Not available 2022 12:22:25 Maternal Grandfather Heart disease Not available 2022 12:22:25 Medical History Condition Response Arthritis Y Anemia Y Hypertension Y Gynecological History Statement/Question Response Abnormal Pap N Flow Light Date of Last Mammogram 03/09/2022 Date of LMP 01/13/2023 N On BCP's at Conception? N STIs/STDs N Was last menstrual period normal N HPV Vaccine N Duration of Flow (days) 4 Current Control Method None Age at First Child 19 Date of Last Colonoscopy 11/14/2019 Frequency of Cycle (Q days) 27 Sexually Active? Y Menses Monthly Y Age of first menstrual cycle 10 Date of Last Pap Smear 11/05/2000 Sexual Problems? N LMP Approximate 11/14/2019 N Obstetrics History GPAL:G 2 P 2 0 0 2 Type Value Full Term 2 Living 2 Total 2 Past Encounters Encounter ID Performer Location Encounter Start Date Encounter Closed Date Diagnosis/Indication Diagnosis SNOMED-CT Code Diagnosis ICD10 Code Diagnosis Note [id number] Swathi Pedersen [facility] [address],[place] [address] 01/09/2023 12:08:51 01/09/2023 18:01:44 Abnormal uterine bleeding 6133166303 9100 N93.9 Update USUpdate LabsUpdate [facility] with pap (no pap since 2000)Updat e mammo @ [facility] F/U will be [facility] & US review Hx was reviewed & updated in chart. Time spent in visit is a total of 30 mins with at least 50% of visit consisting of counseling and review of plan of care. [id number] Ashley Robbins [place] [address],[place] [address] 01/12/2023 16:21:42 01/12/2023 17:22:52 Abnormal uterine bleeding 1373014258 9100 N93.9 [id number] Swathi Pedersen [facility] [address],[place] [address] 01/25/2023 16:27:02 01/25/2023 17:25:17 Gynecologic examination 80249973 Z01.419 Suggested Calcium with Vitamin D 1200-1500m g daily. Patient advised to get an annual flu shot in the fall and she could obtain at [facility] or [facility] take care clinic. Also to obtain TDap vaccinatio n if you have not had one in the last 10 years. Recommend yearly mammograms . Encouraged monthly self breast exams. Encourage safe sexual practices, to use condoms and limit partners if not already in a monogamous relationsh ip. Engage in daily exercise of low impact aerobic exercise 45-60 minutes 4-5 times weekly. Avoid tobacco and illicit drugs as well as using moderation with alcohol intake less than 1-2 8 oz beverages daily. This lifestyle behavior pattern will lead to less health conditions and longer life span. If BMI greater than 25 weight watchers or dietary consult advised. All questions have been answered. Patient appears to understand informatio n, but if you have any questions please call or respond to this email. Pap/hpv sentSTD Screen sentGeneti c Screen discussedC olon Screen PCPDexa Screen PCPRoutine Labs PCPMammo ordered Screening mammography 24 733013 Z12.31 Menorrhagia 315447109 N9 2.0 Reviewed US & Lab workLab radny: FSH 20LH 13.9E 62TSH 1.54Hgb 10.9Hct 35.9Glucos e (non-fasti ng) [id number] 7.1 She is taking these results to her PCP this coming month. We discussed options for managing menses which could include: Mirena IUD/Endo-a blation/Hy sterectomy with the latter needing an MD consult to ensure she is a candidate/ or necessity for these interventi ons. She would like to complete her PCP appt & will call us with what option she prefers.If wants ablation or surgical procedure will need MD consult Dr. Nichols. Elevated blood-pressure reading without diagnosis of hypertension 428783774 R03.0 Has upcoming appt PCPNo sx's Health Concerns Section Related Observation LastModified by Organization Detai ls LastModified Time None Recorded Concern Status LastModified by Organization Details LastModified Time None Recorded Advance Directives Directive None Recorded Payers Encounter Date Sequence Insurance Name Policy Number Policy Blancas Covered Member ID Blancas Member ID Guarantor Name 01/09/2023 1 [facility] [id number] Lakisha A Nevills [id number] Lakisha A Nevills 01/12/2023 1 [facility] [id number] Lakisha A Nevills [id number] Lakisha A Nevills 01/25/2023 1 [facility] [id number] Lakisha A Nevills [id number] Lakisha A Nevills Notes Date Note Type Note Provider Name and Address Organization Details Recorded Time 01/09/2023 text/html Magdalena - Abnormal BleedingReported bypatient.Notes:Manuela alexander is a 47yo white perimenopause female here today to discuss irregular heavy cycles over the past year.She has had some irregular cycles but feels they recently have gotten significantly heavier.Recent cycle 12/09/2022 period started & had a light period/heavier cycle (rotated) with some small clots daily x the entire month of December 2022. Neg pain of abd/pelvis/flankNeg urinary sx'sNeg GI sx'sNeg N/V/F/C/DNeg Vag d/c, odor, irritation, itching Swathi Pedersen [facility]- [address], [place], [address], [facility] 01/09/2023 16:35:07 01/25/2023 text/html Annual GYNReport ed bypatient.Menstrual cycle:Menorrhagia;Per imenopausal Urinary symptoms:No hematuria; No incontinence Vulva:No genital lesion Vagina:Normal vaginal discharge Breast:No breast pain; No breast lump; No nipple discharge Sexual complaints:No sexual complaints; No pain during intercourse; Normal libido Menopausal Symptoms:No menopausal symptoms; Normal vaginal lubrication Psychological symptoms:No depression; No anxiety; No PMDD Preventive measures:Encourage self breast examination; Encourage regular exercise; Encourage no tobacco use; Encourage regular mammograms starting age 40 Swathi Pedersen [facility]- [address], [place], [address], [facility] 01/25/2023 17:20:29 OBGyn Episode No OBEpisode recorded.
--- OUTSIDE RECORDS SUMMARY | 2024-12-18 02:08 | XMS_ITS | Referral Summary ---
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 Gender Identity Not on file Sexual Orientation Not on file Last Filed Vital Signs Vital Sign Reading Time Taken Comments Blood Pressure 157/102 06/04/2024 9:49 AM CDT Pulse 108 06/04/2024 9:49 AM CDT Temperature 36.8 C (98.3 F) 06/04/2024 9:49 AM CDT Respiratory Rate 21 11/26/2019 3:00 PM SLIDE FASTENER CHAIN ASSEMBLER Oxygen Saturation 94% 11/26/2019 4:27 PM SLIDE FASTENER CHAIN ASSEMBLER Inhaled Oxygen Concentration - - Weight 115.4 kg (254 lb 8 oz) 06/04/2024 9:49 AM CDT Height 165.1 cm (5' 5 ) 06/04/2024 9:49 AM CDT Body Mass Index 42.35 06/04/2024 9:49 AM CDT Plan of Treatment Not on file Procedures Procedure Name Priority Date/Time Associated Diagnosis Comments COMPREHENSIVE METABOLIC PANEL Routine 06/02/2024 3:32 PM CDT Seronegative rheumatoid arthritis ([facility]/H[facility]) ([facility]) High risk medication use from Last 3 [...] - 06/03/2024 10:11 AM CDT Performed at: 01 - [facility] [address] [id number] Avionics Systems Integration Specialist: Mic Kaye PhD, Phone: [phone] us Carroll Becker MD LAB BLOOD ORDERABLES Final Re sult [facility] - 01 from Last 3 Months or Most Recently Relevant to Health Maintenance Insurance [facility] CHOICE PLUS Care Teams Irrigator Head Relationship Specialty Start Date End Date Dioni Gibson MD PCP - General 03/21/17
[2024-12-18 02:11] VITALS: BP 134/76; PULSE 108; RESP 16; TEMP 36.2; O2SAT 93
--- NOTE | 2024-12-18 02:11 | ECG_ITS ---
Test Date: 2024-12-18 02:19:06 Measurements Intervals Davis Rate: 100 P: 24 SC: 134 QRS: -36 QRSD: 101 T: 47 QT: 354 QTc: 457 Interpretive Statements SINUS TACHYCARDIA WITH OCCASIONAL SUPRAVENTRICULAR PREMATURE COMPLEXES LEFT AXIS DEVIATION PATTERN CONSISTENT WITH PULMONARY DISEASE BASELINE WANDER- AVR, AVL, AVF BORDERLINE ECG No previous ECG available for comparison Electronically Signed On 12-18-2024 07:36:55 GLASS BLOWING INSTRUCTOR by Joel David D.O.
[2024-12-18 02:16] VITALS: PULSE 95
[2024-12-18 02:28] VITALS: O2SAT 95
[2024-12-18 02:31] LABS: Basophils Percent Auto 0.4 % (0.2-1.2); Eosinophils Absolute Auto 0.1 K/mm3 (0-0.3); Eosinophils Percent Auto 0.9 % (0-4.4); Hematocrit 34.2 % (37.0-47.0); Hemoglobin 10.1 g/dL (12.0-15.0); Immature Granulocyte Absolute 0.02 K/mm3 (0.00-0.031); Immature Granulocyte Percent A 0.4 % (0-0.5); Lymphocytes Absolute Auto 1.62 K/mm3 (0.9-3.2); Lymphocytes Percent Auto 28.4 % (18.3-44.2); Mean Corpuscular HGB Conc 29.5 g/dl (32-36); Mean Corpuscular Hemoglobin 20.9 pg (26-34); Mean Corpuscular Volume 70.7 fl (80-100); Mean Platelet Volume 9.3 fl (7.4-10.4); Monocytes Absolute Auto 0.5 K/mm3 (0.1-0.6); Monocytes Percent Auto 8.1 % (2.6-8.5); Neutrophils Absolute Auto 3.5 K/mm3 (1.3-6.7); Neutrophils Percent Auto 61.8 % (45.5-73.1); Platelet Count Result 273 k/mm3 (150-375); Red Blood Count 4.84 M/mm3 (4.2-5.4); Red Cell Distribution Width 18.3 % (11.5-14.5); White Blood Count 5.7 K/mm3 (4.5-10.0)
[2024-12-18 02:37] VITALS: O2SAT 97
[2024-12-18 02:43] LABS: Alanine Aminotransferase 32 U/L (6-35); Albumin Level 3.6 g/dL (3.5-5.1); Alkaline Phosphatase 90 U/L (38-126); Anion Gap 8 mmol/L (4-12); Aspartate Amino Transferase 32 U/L (14-36); Bilirubin,Total 0.5 mg/dL (0.2-1.3); Blood Urea Nitrogen 9 mg/dL (7-17); Calcium 8.3 mg/dL (8.4-10.2); Carbon Dioxide 26 mmol/L (22-30); Chloride 100 mmol/L (98-107); Estimated CRCL calculation 136 ml/min; Estimated Glomerular Filt Rate > 60; Glucose 122 mg/dL (65-110); Potassium 3.4 mmol/L (3.4-5.0); Sodium 134 mmol/L (137-145)
[2024-12-18 02:50] LABS: Hypochromasia 1+; Microcytosis 1+ (NORMAL); Ovalocytes 1+; Platelet Estimate Adequate (Adequate); Schistocytes None Seen
[2024-12-18 03:07] LABS: Influenza A QL RT-PCR Positive (Negative); Influenza B QL RT-PCR Negative (Negative); RSV RNA, RT-PCR Negative (Negative); SARS-CoV-2 RNA PCR Negative (Negative)
--- NOTE | 2024-12-18 03:07 | ED.SOB ---
HPI - SOB/Dyspnea General Chief Complaint: Shortness of Breath/Dyspnea Stated Complaint: SOB Time Seen by Provider: 12/18/24 02:43 History of Present Illness HPI Narrative: 49-year-old female with a past medical history including rheumatoid arthritis and hypertension. She presents to the emergency room with several days of increasing shortness of breath with positional changes as well as flu-like symptoms. Patient thinks she has COVID she has had decreased sense of taste, cough productive of clear sputum and some difficulty in breathing. No chest pain or chest soreness. Denies any cardiac history, does not smoke and has no history of COPD or asthma. Patient was found to be hypoxic in triage and required 2 L nasal cannula. No nausea, vomiting, diarrhea. Was otherwise in her normal state of health. No one at home with similar symptoms. No leg swelling or calf cramping sensation. No history of DVT or PE. Related Data Home Medications ?Medication ?Instructions ?Recorded ?Confirmed ?Last Taken ?Type amlodipine 5 mg tablet 5 mg PO DAILY 08/23/23 12/18/24 12/17/24 History leflunomide 20 mg tablet 20 mg PO DAILY 08/23/23 12/18/24 12/18/24 History omeprazole 20 mg capsule,delayed 20 mg PO BID 08/23/23 12/18/24 Unknown History release losartan 50 mg tablet mg 12/18/24 12/17/24 History semaglutide 0.25 mg or 0.5 mg (2 0.5 mg subcut WEEKLY 12/18/24 12/18/24 12/13/24 History mg/3 mL) subcutaneous pen injector (Ozempic) Allergies Allergy/AdvReac Type Severity Reaction Status Date / Time penicillins Allergy Unknown Rash Uncoded 12/18/24 02:17 Review of Systems Review of Systems: As reviewed above in HPI FOR[facility]LY [facility] Past Medical History Medical History Hypertension Ulcer, esophagus Surgical History Surgical History History of ear surgery 1984 History of lung surgery 2019 [facility] Family History Family History Father COPD (chronic obstructive pulmonary disease) Mother Colon cancer Other Cancer Cerebrovascular accident Diabetes mellitus Heart disease Hypertension Social History Social History Smoking status: Never smoker Alcohol intake: current Alcohol use details: rarely Occupation/Education: occupation 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 Mucous membranes moist. NECK: Supple. CHEST: Coarse breath sounds with wheezing in the left apex, vesicular breath sounds throughout the right side, no tachypnea or accessory muscle use. HEART: [Regular rate and rhythm]. No murmur heard. [Normal peripheral pulses.] ABDOMEN: [Soft, nondistended], [nontender], [No rigidity or guarding] EXTREMITIES: Normal range of motion. [No edema.] SKIN: Warm, dry, no rash. NEURO: [No focal deficits]. Alert and oriented [x3.] PSYCH: [Normal mood and affect.] Course Vital Signs Vital signs: Vital Signs Temperature 36.2 C L 12/18/24 02:11 Pulse Rate 108 H 12/18/24 02:11 Respiratory Rate 16 12/18/24 02:11 Blood Pressure 134/76 12/18/24 02:11 Pulse Oximetry 93 12/18/24 02:11 Temperature 36.2 C L 12/18/24 02:11 Pulse Rate 95 12/18/24 02:16 Respiratory Rate 16 12/18/24 02:11 Blood Pressure 134/76 12/18/24 02:11 Pulse Oximetry 93 12/18/24 03:31 Oxygen Delivery Room Air 12/18/24 03:31 Oxygen Flow Rate 2 12/18/24 02:37 MDM - SOB/Dyspnea MDM Narrative Medical decision making narrative: 49-year-old female with history of hypertension and rheumatoid arthritis. She also has a history of morbid obesity. Presents the emergency department with flu-like symptoms and shortness a breath for last 2 days. Otherwise pleasant, not any acute distress, found to be hypoxic in triage requiring some supplemental oxygenation. Afebrile without any tachypnea. Initially tachycardic but this resolved upon sitting in the chair. Normal blood pressure. Examination shows some accessory breath sounds with some wheezing focal in the left upper lobe but no signs of respiratory distress. Considerations are for pneumonia, consolidation, less likely pneumothorax or bronchospasm. COVID, flu, RSV are also likely given the historical features. Workup was ordered including two-view chest x-ray, CBC, CMP, EKG. Chest x-ray on my interpretation shows no consolidation or pneumonia. X-ray read by radiology shows some hypoventilation and basilar atelectasis but no effusion, pneumothorax or pneumonia. Workup shows no leukocytosis, hemoglobin of 10.1 without any baseline. Normal platelet count. Electrolytes within normal limits, normal creatinine, normal glucose and LFTs. Patient did test positive for influenza, given her duration of symptoms she would not benefit from Tamiflu initiation. Will try albuterol inhaler as well as Medrol Dosepak for symptom control. Patient was taken off oxygen throughout the evaluation here today and she maintained good oxygen saturation in the mid to high 90s when she talks and moves. Occasion will go down into the low 90s or even upper 80s when she sleeps likely secondary to a component of obesity and DEDE but this immediately corrects when she is awake and talking. Presently 96% on room air. No tachycardia or tachypnea. Patient is comfortable with the plan being discharged home with prescription medications for Medrol and albuterol inhaler and close outpatient follow-up as well as return precautions to the ER. Medical Records Attestation: I reviewed the patient's medical records. Lab Data Attestation: I reviewed the patient's lab results. 12/18/24 02:26 12/18/24 02:26 Labs: Lab Results 12/18/24 Range/Units 02:26 WBC 5.7 (4.5-10.0) K/mm3 RBC 4.84 (4.2-5.4) M/mm3 Hgb 10.1 L (12.0-15.0) g/dL Hct 34.2 L (37.0-47.0) % MCV 70.7 L (80-100) fl MCH 20.9 L (26-34) pg MCHC 29.5 L (32-36) g/dl RDW 18.3 H (11.5-14.5) % Plt Count 273 (150-375) k/mm3 MPV 9.3 (7.4-10.4) fl Immature Gran % (Auto) 0.4 (0-0.5) % Neut % (Auto) 61.8 (45.5-73.1) % Lymph % (Auto) 28.4 (18.3-44.2) % Stark % (Auto) 8.1 (2.6-8.5) % Eos % (Auto) 0.9 (0-4.4) % Baso % (Auto) 0.4 (0.2-1.2) % Lymph # (Auto) 1.62 (0.9-3.2) K/mm3 Stark # (Auto) 0.5 (0.1-0.6) K/mm3 Eos # (Auto) 0.1 (0-0.3) K/mm3 Baso # (Auto) 0.0 (0.0-0.1) K/mm3 Abs Immat Gran (auto) 0.02 (0.00-0.031) K/mm3 Absolute Neuts (auto) 3.5 (1.3-6.7) K/mm3 Absolute Nucleated RBC 0.000 (0.0-0.012) K/mm3 Nucleated RBC % 0.0 (0.0-0.2) % Platelet Estimate Adequate (Adequate) Hypochromasia 1+ Microcytosis 1+ (NORMAL) Ovalocytes 1+ Schistocytes None seen Sodium 134 L (137-145) mmol/L Potassium 3.4 (3.4-5.0) mmol/L Chloride 100 (98-107) mmol/L Carbon Dioxide 26 (22-30) mmol/L Anion Gap 8 (4-12) mmol/L BUN 9 (7-17) mg/dL Creatinine 0.52 L (0.7-1.0) mg/dL Estim Creat Clear Calc 136 ml/min Estimated GFR > 60 (59 - ) Glucose 122 H (65-110) mg/dL Calcium 8.3 L (8.4-10.2) mg/dL Total Bilirubin 0.5 (0.2-1.3) mg/dL AST 32 (14-36) U/L ALT 32 (6-35) U/L Alkaline Phosphatase 90 (38-126) U/L Total Protein 7.0 (6.3-8.2) g/dL Albumin 3.6 (3.5-5.1) g/dL Influenza A (RT-PCR) Positive A (Negative) Influenza B (RT-PCR) Negative (Negative) RSV (RT-PCR) Negative (Negative) SARS-CoV-2 RNA (RT-PCR) Negative (Negative) Imaging Data Attestation: I personally reviewed and interpreted this imaging study as follows: My impression: No pneumonia or pneumothorax, no pleural effusions. Radiologist's impression: No acute osseous or chest process Discharge Plan Discharge Clinical Impression: Influenza A Patient Disposition: Home, Self-Care Condition: Stable Instructions: Antibiotic Form, Influenza (ED) Additional Instructions: You tested positive for influenza but have no signs of pneumonia on your chest x-ray. We will send you home with an as-needed albuterol inhaler as well as a steroid pack for the next several days. Your symptoms will likely resolve by the end of the week and based on how long you have had symptoms. Continue taking [id number] therapies in addition to Tylenol and ibuprofen for any aches, pains or fever. Follow-up with your regular doctor. If you have any worsening shortness of breath or any new concerns please return to the ER for evaluation. Patient Language: Prydeinig Prescriptions: New methylprednisolone [Medrol (Santi)] 4 mg tablets,dose pack See Rx Instructions .ROUTE .COMPLEX Qty: 21 0RF Rx Instructions: orally per package directions albuterol sulfate 90 mcg/actuation HFA aerosol inhaler 2 puff inhalation QID PRN (Reason: shortness of breath or wheezing) Qty: 8.5 0RF No Action amlodipine 5 mg tablet 5 mg PO DAILY leflunomide 20 mg tablet 20 mg PO DAILY omeprazole 20 mg capsule,delayed release(DR/EC) 20 mg PO BID Ozempic 0.25 mg or 0.5 mg (2 mg/3 mL) pen injector 0.5 mg subcut WEEKLY losartan 50 mg tablet Follow-up/Referrals: Arthur,Dioni Le MD [Primary Care Provider] - Time of Disposition: 05:01
--- OUTSIDE RECORDS SUMMARY | 2024-12-18 03:08 | XMS_ITS | Encounter Summary ---
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
--- OUTSIDE RECORDS SUMMARY | 2024-12-18 03:09 | XMS_ITS | Referral Summary ---
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 Gender Identity Not on file Sexual Orientation Not on file Last Filed Vital Signs Vital Sign Reading Time Taken Comments Blood Pressure 157/102 06/04/2024 9:49 AM CDT Pulse 108 06/04/2024 9:49 AM CDT Temperature 36.8 C (98.3 F) 06/04/2024 9:49 AM CDT Respiratory Rate 21 11/26/2019 3:00 PM NURSE MIDWIFE Oxygen Saturation 94% 11/26/2019 4:27 PM NURSE MIDWIFE Inhaled Oxygen Concentration - - Weight 115.4 kg (254 lb 8 oz) 06/04/2024 9:49 AM CDT Height 165.1 cm (5' 5 ) 06/04/2024 9:49 AM CDT Body Mass Index 42.35 06/04/2024 9:49 AM CDT Plan of Treatment Not on file Procedures Procedure Name Priority Date/Time Associated Diagnosis Comments COMPREHENSIVE METABOLIC PANEL Routine 06/02/2024 3:32 PM CDT Seronegative rheumatoid arthritis ([facility]/H[facility]) ([facility]) High risk medication use from Last 3 [...] AM CDT Performed at: 01 - [facility] [address] [id number] Hospital Pharmacy Technician: Mic Kaye PhD, Phone: [phone] us Carroll Becker MD LAB BLOOD ORDERABLES Final Re sult [facility] - 01 from Last 3 Months or Most Recently Relevant to Health Maintenance Insurance [facility] CHOICE PLUS [facility]/PPO Address: [address] [address] [place] [address] [facility] Address: [address] [address] [place] [address] Care Teams Vp Analytics Relationship Specialty Start Date End Date Dioni Gibson MD PCP - General 03/21/17
--- OUTSIDE RECORDS SUMMARY | 2024-12-18 03:09 | XMS_ITS | Encounter Summary ---
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
--- OUTSIDE RECORDS SUMMARY | 2024-12-18 03:09 | XMS_ITS | Encounter Summary ---
Author Organization 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
--- OUTSIDE RECORDS SUMMARY | 2024-12-18 03:09 | XMS_ITS | Encounter Summary ---
Author Organization 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
--- OUTSIDE RECORDS SUMMARY | 2024-12-18 03:09 | XMS_ITS | Clinical Summary ---
Author Organization [facility] Address [address] [place] [address] Care Team Providers Care Pit Clerk Name Role Phone Dioni Gibson MD Primary [...] on file Legal Sex Female 7:00 AM HIP HOP ARTIST Gender Identity Not on file Sexual Orientation Not on file Obstetrics History Last Filed Vital Signs Vital Sign Reading Time Taken Comments Blood Pressure 157/102 06/04/2024 9:49 AM CDT Pulse 108 06/04/2024 9:49 AM CDT Temperature 36.8 C (98.3 F) 06/04/2024 9:49 AM CDT Respiratory Rate 21 11/26/2019 3:00 PM HIP HOP ARTIST Oxygen Saturation 94% 11/26/2019 4:27 PM HIP HOP ARTIST Inhaled Oxygen Concentration - - Weight 115.4 [...] - 06/03/2024 10:11 AM CDT Performed at: [facility] [id number] Clinical Program Consultant: Mic Kaye PhD, Phone: [phone] us Carroll Becker MD LAB BLOOD ORDERABLES Final Re sult [facility] - 01 from Last 3 Months or Most Recently Relevant to Health Maintenance Insurance [facility] CHOICE [facility]US [facility]/PPO Address[place] [address] [facility] CHOICE [facility]/PPO Address: [facility] [address] [place] [address] Care Teams Pit Clerk Relationship Specialty Start Date End Date Dioni Gibson MD PCP - General 03/21/17
[2024-12-18 03:31] VITALS: O2SAT 93
[2024-12-18] MEDS: methylPREDNISolone 4 MG TABLET PO (05:20)
[2024-12-18] MEDS: ALBUTEROL SULFATE (*SP) AEROSOL 1 PUFF 2 PUFF INHALATION (05:21)
== END 2024-12-18 05:31 | disposition home or self-care (01) ==
PROVIDERS: Emergency Provider Student in an Organized Health Care Education/Training Program; PCP Internal Medicine
DX: J10.1 Influenza due to other identified influenza virus with other respiratory manifestations (principal); Z20.822 Contact with and (suspected) exposure to COVID-19; I10 Essential (primary) hypertension; M06.9 Rheumatoid arthritis, unspecified; Z79.85 Long-term (current) use of injectable non-insulin antidiabetic drugs; Z79.899 Other long term (current) drug therapy
CPT/HCPCS: 36415; 71046; 80053; 85025; 87637; 93005; 99284; A9270

== ENCOUNTER 2025-06-02 15:49 | Outpatient (CLI) | payer OTHER, SELFPAY ==
--- NOTE | ~2025-06-02 | MM_ITS ---
EXAMINATION: MM screening vipul BI w va HISTORY: Screening TECHNIQUE: Craniocaudal and mediolateral oblique 3-D tomosynthesis images were obtained and synthetic 2-D images were generated. CAD analysis was submitted and interpreted. COMPARISON: Comparison to multiple prior studies sequentially, with oldest reviewed study dated 05/2023. BREAST PARENCHYMAL COMPOSITION: Dense: The breasts are heterogeneously dense, which may obscure small masses FINDINGS: There is no evidence of suspicious mass, calcification, or architectural distortion to sugg est malignancy in either breast. There has been no suspicious interval change. IMPRESSION: 1. No mammographic evidence of malignancy. 2. Recommend routine screening mammography in one year. BI-RADS Category 1: Negative Reviewed, dictated and finalized at location B.
== END 2025-06-02 15:50 | disposition home or self-care (01) ==
LOC: MICIMG 15:50
PROVIDERS: PCP Internal Medicine; Visit Provider Internal Medicine
DX: Z12.31 Encounter for screening mammogram for malignant neoplasm of breast (principal)
CPT/HCPCS: 77063; 77067